=== PATIENT | female | born 1970 | race Caucasian/White ===

== ENCOUNTER → 2023-02-06 | Outpatient (CLI) | payer OTHER ==
--- NOTE | 2023-02-06 12:17 | BD ---
EXAMINATION TYPE: Axial Bone Density DATE OF EXAM: 02/06/2023 CLINICAL HISTORY: 52 years old Female. ICD-10 CODE: M85.851 Osteopenia Height: 66.2 in Weight: 138 lbs FRAX RISK QUESTIONS: Family History (Parent hip fracture): yes father Current Tobacco Use: yes RISK FACTORS HISTORY OF: History of Wrist Fracture: lt age 8 Active: yes Postmenopausal woman: age 49 MEDICATIONS: Additional Medications: vit d, depression meds EXAM MEASUREMENTS: Bone mineral densitometry was performed using the [employer] System. Bone mineral density as measured about the Lumbar spine is: ----- L1-L4(G/cm2): 0.930 T Score Values are as follows: ----- L1: -1.5 ----- L2: -2.9 ----- L3: -1.7 ----- L4: -2.4 ----- L1-L4: -2.1 Z Score Values are as follows: ----- L1: -0.7 ----- L2: -2.0 ----- L3: -0.9 ----- L4: -1.6 ----- L1-L4: -1.3 Bone mineral density baseline Bone mineral density about the R hip (g/cm2): 0.782 Bone mineral density about the L hip (g/cm2): 0.792 T Score values are as follows: -----R Neck: -1.6 -----L Neck: -1.5 -----R Total: -1.8 -----L Total: -1.7 Z Score values are as follows: -----R Neck: -0.6 -----L Neck: -0.5 -----R Total: -1.1 -----L Total: -1.0 Bone mineral density baseline FRAX%s: The graph provided illustrates a 12.0% chance for a major osteoporotic fx and a 1.0% chance f or the hips probability for fx in 10 years time. IMPRESSION: Osteopenia (T Score between -2.5 and -1). There is slightly increased risk of fracture and the patient may be considered for treatment. Re-Screen 2-5 years. NOTE: T-SCORE=SD OF THE YOUNG ADULT MEAN.
--- NOTE | 2023-02-06 14:15 | US ---
EXAMINATION TYPE: US arterial LE single level DATE OF EXAM: 02/06/2023 12:39 PM CLINICAL INDICATION: Female, 52 years old with history of I73.9 PAD; Smoker History of: Smoker: Yes Hypertension: No Diabetic: No Hyperlipidemia: No TIA/CVA: No Previous Vascular Surgery: No CAD: No ID: No Vascular Ulcers: No Claudication: No Gangrene: No Doppler Waveforms: Right: Multiphasic Left: Multiphasic Right Brachial Pressure: 110 Left Brachial Pressure: 105 Ankle-Brachial Indices: Right: 1.1 Left: 1.1 Toe Brachial Indices: Right: 0.7 Left: 0.6 IMPRESSION: Normal ankle-brachial indices bilaterally.
--- NOTE | 2023-02-08 08:19 | MM ---
Reason for Exam: Screening (asymptomatic). Last mammogram was performed 7 year(s) and 8 month(s) ago. Patient History: Menarche at age 10. First Full-Term at age 15. Postmenopausal. Risk Values: Shirley 5 year model risk: 0.8%. NCI Lifetime model risk: 6.1%. Prior Study Comparison: 06/09/2015 Right Diagnostic Mammogram, [facility]. 06/09/2015 Bilateral Screening Mammogram, [facility]. Tissue Density: There are scattered fibroglandular densities. Findings: Analyzed By CAD. There is no suspicious group of microcalcifications or new suspicious mass. Overall Assessment: Negative, BI-RAD 1 Management: Screening Mammogram of both breasts in [address] [facility] will attempt to contact patient to return for supplemental views and ultrasound if indicated. Patient should continue monthly self-breast exams. A clinical breast exam by your physician is recommended on an annual basis. This exam should not preclude additional follow-up of suspicious palpable abnormalities. Note on Shirley scores and lifetime risk: 1. A Shirley score greater than 3% is considered moderate risk. If this is the case, consider specialist referral to assess eligibility for a risk reducing agent. 2. If overall lifetime risk for the development of breast cancer is 20% or higher, the patient may qualify for future screening with alternating mammogram and breast MRI. Electronically signed and approved by: Dick Ramirez DO
== END | disposition home or self-care (01) ==
LOC: RADBDWWP 10:41
PROVIDERS: ATTEND Internal Medicine
DX: Z12.31 Encounter for screening mammogram for malignant neoplasm of breast (principal); M81.0 Age-related osteoporosis without current pathological fracture; M85.89 Other specified disorders of bone density and structure, multiple sites; I73.9 Peripheral vascular disease, unspecified; Z78.0 Asymptomatic menopausal state
CPT/HCPCS: 77067; 77080; 93922

== ENCOUNTER → 2023-10-25 | Outpatient (CLI) | payer OTHER ==
--- NOTE | 2023-10-25 19:51 | CTL ---
EXAMINATION TYPE: CT Low Dose Lung DATE OF EXAM ORDERED: 10/25/2023 HISTORY: 53-year-old female Z12.2 SCREENING LUNG CA, F17.210 CURRENT SMOKER, 80 pack-year history. Marcia ng cancer screening CT DLP: 74.[address] CTDI: 1.9 mGy Automated exposure control for dose reduction was used. SCREENING VISIT: Baseline COMPARISON: None TECHNIQUE: Low dose computed tomography scan was performed through the chest at 1 mm thick sections a nd reconstructed images in multiple planes at 1 mm and [address] DIAGNOSTIC QUALITY: Satisfactory FINDINGS: The heart is normal size without pericardial effusion. Aorta normal caliber with conventional arch vessel branching anatomy. Mild atelectatic arch calcifica tions. No thoracic lymphadenopathy by CT size criteria. Mild diffuse bronchial wall thickening. [id number] upper lung predominant centrilobular emphyse ma. Biapical pleural-parenchymal scarring. * Some more focal irregular opacities such as at the lateral right apex measuring up to 1.8 cm, axia l image 40. * Also 1 cm lateral right upper lobe, axial image 59. * There are a number of pulmonary nodules throughout the right upper lobe ranging from image 70 to i mage 129 and measuring up to 5 mm for which follow-up is recommended. * 6 mm subpleural pulmonary nodule posterior left upper lobe axial image 60. * Adjacent 5 mm subpleural pulmonary nodule, axial image 57, along with additional smaller pulmonary nodules within the left lobe. * 7 mm anterior left midlung pulmonary nodule, axial image 183. Visualized upper abdomen shows no gross abnormality. Bones: Dextroconvex scoliosis centered along the lower thoracic spine. IMPRESSION: 1. LungRADS Category 4A (suspicious, 5-15% chance of malignancy); numerous bilateral pulmonary nodule s, largest in the right apex measuring 1.8 cm and 1.0 cm. Some of these may represent pleural parench ymal scarring. Additional scattered nodules ranging in size from 4 mm to 7 mm. Three-month follow-up low-dose CT chest recommended. 2. COPD with mild to moderate upper lung predominant emphysema. CT LUNG RAD AND CT CHEST RECOMMENDATION: Lung-Rad 4A Suspicious: Follow-up 3 month LDCT or PET/CT may be used when there is a > 8 mm solid component. S Modifier (other clinically significant findings): None
== END | disposition home or self-care (01) ==
LOC: RADCTMAIN 12:41
PROVIDERS: ATTEND Internal Medicine
DX: Z12.2 Encounter for screening for malignant neoplasm of respiratory organs (principal); J44.9 Chronic obstructive pulmonary disease, unspecified; J43.2 Centrilobular emphysema; F17.210 Nicotine dependence, cigarettes, uncomplicated
CPT/HCPCS: 71271

== ENCOUNTER → 2023-11-24 | Outpatient (CLI) | payer OTHER ==
--- NOTE | 2023-11-26 15:05 | PE ---
EXAMINATION TYPE: PET CT fusion skull to thigh DATE OF EXAM: 11/24/2023 CLINICAL INDICATION:Female, 53 years old with history of R91.1 LUNG NODULE; TECHNIQUE: Following the intravenous administration of 11.27 mCi of F-18 FDG, whole body images are performed from the skull base to the midthigh. Images are reviewed on the computer in the coronal, axial, and sagittal planes. Reconstructed rotating images are created on independent workstation and reviewed on the computer. A non-contrast CT is performed in conjunction with the PET scan. Glucose level 81 mg/dL CT DLP: 227 mGycm, Automated exposure control for dose reduction was used. COMPARISON: CT 10/25/2023, PET/CT None, MRI: None FINDINGS: Mediastinal SUV mean is 1.9. Hepatic parenchyma SUV mean is 2.8. SKULL BASE AND NECK: No suspicious radiotracer activity. CHEST, MEDIASTINUM, AND HILAR REGION: * Parenchymal pleural scarring in the apices with scattered subcentimeter pulmonary nodules. * Mild uptake within a cluster of nodules series 3 image 65 Max SUV 2.1 nodules measured 4 mm each. I was talking are ABDOMEN AND PELVIS: No suspicious radiotracer activity. MUSCULOSKELETAL STRUCTURES: No suspicious radiotracer activity. OTHER CT: Atherosclerosis of the arterial vasculature is mild. The appendix is normal. The gallbladde r surgically absent. IMPRESSION: 1. Mild uptake within an area of 2 nearby pulmonary nodules which is below background levels and the the nodules are subcentimeter in size. The remainder of the apical scarring and other subcentimeter pulmonary nodules do not have increased metabolic activity. Surveillance with CT imaging recommended with 3 month follow-up CT chest. 2. No lymphadenopathy or other metabolically active lesions identified.
== END | disposition home or self-care (01) ==
LOC: RADPETMAIN 11:45
PROVIDERS: ATTEND Internal Medicine
DX: R91.8 Other nonspecific abnormal finding of lung field (principal)
CPT/HCPCS: 78815; A9552

== ENCOUNTER → 2024-02-28 | Outpatient (CLI) | payer OTHER ==
--- NOTE | 2024-02-28 13:48 | CT ---
EXAMINATION TYPE: CT chest w con CT DLP: 185.9 mGycm, Automated exposure control for dose reduction was used. DATE OF EXAM: 02/28/2024 1:26 PM COMPARISON: PET CT 11/24/2023, CT low-dose lung 10/25/2023 CLINICAL INDICATION:Female, 53 years old with history of R91.1 SOLITARY PULMONARY NODULE; PHH, f/u no dules TECHNIQUE: Multiple axial images were obtained through the chest following the administration of 100 cc of Isovue 300. . Coronal and sagittal reformats reviewed. FINDINGS: LUNGS/ PLEURA: No pleural effusion or pneumothorax. Bilateral upper lobe predominant mild centrilobul ar and paraseptal emphysematous changes. Biapical pleural parenchymal scarring redemonstrated. Right apical nodular 1.8 cm opacity (series 4, image 7). Stable nodular opacity within the right upper lob e measuring 9 mm (series 4, image 11). Additional stable scattered small pulmonary micronodules withi n the bilateral upper lobes. No definitive new or enlarging pulmonary nodules. AIRWAY: Patent and unremarkable.. HEART: Size within normal limits. No pericardial effusion.. MEDIASTINUM: No evidence of adenopathy. VASCULATURE: No aortic aneurysm. Mild atherosclerotic calcification of the aortic arch and its branc hes. MUSCULOSKELETAL: No acute osseous abnormalities. Mild S-shaped scoliotic curvature. No aggressive oss eous lesion. SOFT TISSUES/LYMPH NODES: Unremarkable. LOWER NECK: No significant findings. UPPER ABDOMEN: Postcholecystectomy changes. IMPRESSION: 1. Stable pulmonary nodules with no new or enlarging pulmonary nodules. No corresponding significant FDG uptake above background on prior PET/CT. Consider follow-up CT chest in 6-12 months to assess fo r stability. 2. Mild COPD changes. [facility], , 02/28/2024 1:46 PM
== END | disposition home or self-care (01) ==
LOC: RADCTMAIN 12:43
PROVIDERS: ATTEND Internal Medicine
DX: R91.1 Solitary pulmonary nodule
CPT/HCPCS: 71260

== ENCOUNTER → 2024-09-18 | Outpatient (CLI) | payer OTHER ==
--- NOTE | 2024-09-18 12:51 | XR ---
EXAMINATION TYPE: XR chest 2V DATE OF EXAM: 09/18/2024 12:46 PM COMPARISON: CT chest 02/28/2024, PET/CT 11/24/2023, CT low-dose lung 10/25/2023 TECHNIQUE: XR chest 2V Frontal and lateral views of the chest. CLINICAL INDICATION:Female, 54 years old with history of R07.82 Intercostal pain; FINDINGS: Lungs/Pleura: Hyperinflation. No evidence of pneumothorax, pleural effusion or focal consolidation. Pulmonary vascularity: Unremarkable. Heart/mediastinum: Cardiomediastinal silhouette is unremarkable. Musculoskeletal: No acute osseous pathology. Dextro curvature of the thoracolumbar spine. Other findings: Surgical clips in the upper abdomen. IMPRESSION: 1. No acute cardiopulmonary disease process. 2. COPD changes. [facility], , 09/18/2024 12:49 PM
== END | disposition home or self-care (01) ==
LOC: RADXRMAIN 12:32
PROVIDERS: ATTEND Internal Medicine
DX: J44.9 Chronic obstructive pulmonary disease, unspecified (principal)
CPT/HCPCS: 71046